=== PATIENT | female | born 1985 | race Caucasian/White ===

== ENCOUNTER 2017-08-14 04:35 | Inpatient (IN) | payer BC ==
[2017-08-14 04:57] VITALS: BMI 30.4
[2017-08-14] MEDS ORDERED: Lactated Ringer's 1,000 ML IV ONE (05:14)
[2017-08-14 06:24] LABS: SQUAMOUS EPITHIAL 1 /hpf (0-5); URINE BACTERIA RARE (<OCC); URINE BILIRUBIN NEGATIVE (NEGATIVE); URINE BLOOD 1+ (NEGATIVE); URINE CLARITY Clear (Clear); URINE COLOR Yellow (YELLOW); URINE GLUCOSE (UA) NORMAL (Normal); URINE LEUKOCYTE ESTERASE NEG Leu/uL (Negative); URINE NITRATE NEGATIVE (NEGATIVE); URINE PROTEIN NEGATIVE (NEGATIVE); URINE UROBILINOGEN NORMAL mg/dL (0.2-1.0)
[2017-08-14 06:32] LABS: BASO % 0.4 % (0.0-2.0); EOS # 0.1 K/uL (0.0-0.7); EOS % 1.1 % (0.0-4.0); HEMOGLOBIN 13.2 g/dL (11.0-16.0); LYMPH # 1.7 K/uL (1.0-4.3); MEAN CELL VOLUME 89.8 fL (81.0-99.0); MEAN CORPUSCULAR HEMOGLOBIN 30.5 pg (27.0-31.0); MEAN CORPUSCULAR HGB CONC 33.9 g/dL (33.0-37.0); MONO # 0.6 K/uL (0.0-0.8); MONO % 7.1 % (0.0-10.0); NEUT # 5.5 K/uL (1.8-7.0); NEUT % 70.4 % (50.0-75.0); RBC 4.32 Mil/uL (3.80-5.20); RED CELL DISTRIBUTION WIDTH 13.3 % (11.5-14.5); WHITE BLOOD COUNT 7.9 K/uL (4.8-10.8)
[2017-08-14 06:34] LABS: ALB/GLOB RATIO 1.1 (1.0-2.1); ALBUMIN 3.4 g/dL (3.5-5.0); ALT/SGPT 23 U/L (9-52); AST/SGOT 20 U/L (14-36); BLOOD UREA NITROGEN 10 mg/dL (7-17); CALCIUM 9.2 mg/dl (8.6-10.4); GFR AFRICAN-AMERICAN > 60; GFR NON-AFRICAN AMERICAN > 60
[2017-08-14] MEDS ORDERED: Sodium Citrate/Citric Acid 15 ml Sol PO ONE (07:21)
[2017-08-14] MEDS ORDERED: Morphine 1 mg/ml preservative-free Inj(Duramorph) ONE (07:22)
[2017-08-14] MEDS ORDERED: Sodium Citrate/Citric Acid 15 ml Sol ONE (07:22)
--- NOTE | 2017-08-14 07:28 | OBADHP ---
Datetime: 08/14/2017 05:16 IP Adm Impression Other: early labor Admit Comment, IP Provider: 32 y.o. , LMP 11/24/16, JO ANN 09/08/17, EGA 36w 3d c/o onset of Ctx 020 0 hours, pain scale 10/10, every 4 minutes lasting 30- 45 seconds. Pain starts in back and readiates anteriorly to lower abdomen. care: Dr. Jones; noted for treatment of throat in second trim estre; anemia. P Ob: Primip P HEAD OF ENGLISH: 14 x 33-35 x 4-5 PMH: 2013, hyperthyroid, then spontaneous resolution. Never on meds. During , found to be euthyroid PSH: denies NKDA Meds: PNV, iron, Vit D - takes each once a day Soc Hx: denies tobacco, illicit drug or EtOH use. x 3 years. Fam Hx: Mother alive 56 y.o. Father alive 64 y.o. - both, no med issues. MGM - uterine and ovaria n cancers; one mat aunt P.E.: as aobve. WD in pain. Awake, alert, oriented to time, person and place. Accompanied by husb and Assessment: 32 y.o. P0, 36w 3d, pain of unclear aetiology. FHR tracing - as above; variable decel erations maximum constance to 80 bpm with good recovery; moderate variability. Clinically stable. Plan: 1) IVFs 2) Flexeril 10 mg p.o. x 1 3) U/A 4) Observe - as per, and discussed with, Dr. Jones Addendum 0530 hours: hold flexeril at this time. Continue IVFs, lateral position and oxygen 6.45 am [facility] [place] [facility] sve 1-/-2 A/P patient at 36.3wga with nonreassuirng tracing.early labor.remote from delivery. -discussed with patient about the clinical findings -recommend emergency delivery Pelvic Type - PN: Adequate Extremities - PN: Normal Abdomen - PN: Normal Back - PN: Normal Breast - PN: Not Done Lungs - PN: Normal Heart - PN: Normal Thyroid - PN: Not Done Neurologic - PN: Normal HEENT - PN: Normal General - PN: Normal FHR - Baseline A Provider: 150 Contraction Comments Provider: none detected Comments, ACOG Physical Exam: Abdomen: Gravid. Soft to palpation. Non tender in all quadrants Gestation - Est Wks by US: 36w 3d IP Hx Assessment: The History has been Reviewed and is Current IP Chief Complaint: Uterine contractions NICHD Accel Fetus A IP Provider: [id number] FHR Category Provider Fetus A: Category II NICHD Decel Fetus A IP Provider: Variable Dilatation, Provider: 1 Effacement, Provider: 50 Station, Provider: -3 Genitourinary Exam: Normal DTRs - PN: Not Done EGA AdmitDate IP: 36.3 IP Adm Impression: , intrauterine IP Admit Plan: Admit to unit; Observation/Evaluation
[2017-08-14] MEDS ORDERED: Oxytocin 20 units in LR 2,000 ML IV ONE (07:29)
[2017-08-14] MEDS: cefOXitin 2 GM in Sodium Chloride 0.9% 100 ML IVPB SCH ×3 (07:43→23:00)
[2017-08-14] MEDS ORDERED: Oxycodone/Acetaminophen 5/325 mg Tab PO PRN (12:26)
[2017-08-14] MEDS ORDERED: Lactated Ringer's 1,000 ML IV SCH (12:30)
[2017-08-14 12:51] LABS: BASO % 0.3 % (0.0-2.0); EOS % 0.1 % (0.0-4.0); HEMOGLOBIN 12.5 g/dL (11.0-16.0); LYMPH % 7.6 % (20.0-40.0); MEAN CORPUSCULAR HEMOGLOBIN 30.9 pg (27.0-31.0); MEAN CORPUSCULAR HGB CONC 34.3 g/dL (33.0-37.0); MEAN PLATELET VOLUME 9.6 fL (7.2-11.7); MONO # 0.8 K/uL (0.0-0.8); MONO % 6.1 % (0.0-10.0); NEUT # 10.9 K/uL (1.8-7.0); NEUT % 85.9 % (50.0-75.0); PLATELET COUNT 210 K/uL (130-400); RBC 4.06 Mil/uL (3.80-5.20); RED CELL DISTRIBUTION WIDTH 13.2 % (11.5-14.5); WHITE BLOOD COUNT 12.6 K/uL (4.8-10.8)
[2017-08-14 13:31] LABS: BANDS 3 % (0-2); LYMPHOCYTE 6 % (20-40); MONOCYTE 7 % (0-10); NEUTROPHIL 84 % (50-75); PLATELET ESTIMATE NORMAL (NORMAL); TOTAL CELLS COUNTED 100
[2017-08-14 13:32] LABS: GIANT PLATELETS PRESENT
[2017-08-14] MEDS: Simethicone 80 mg Chewtab PO SCH ×3 (14:19→21:00)
--- NOTE | 2017-08-14 21:28 | OP ---
PROCEDURE DATE: 08/14/2017 PREOPERATIVE DIAGNOSES: 1. Nonreassuring heart tracing. 2. at 36 weeks and 3 days, labor. POSTOPERATIVE DIAGNOSES: 1. Nonreassuring heart tracing. 2. at 36 weeks and 3 days, labor. PROCEDURE PERFORMED: Primary low transverse section. SURGEON: Oleg Jones MD. RN OBSERVATION: Gabriel Vanessa MD. TYPE OF ANESTHESIA: Spinal. ANESTHESIA ADMINISTERED BY: Dr. Mohamud. COMPLICATIONS: None. ESTIMATED BLOOD LOSS: 700 mL. FINDINGS: A viable female in vertex presentation. Nuchal x1 around the neck, loose as well as a body cord present. Apgars of 9 at one minute and 9 at five minutes of life. Normal-appearing uterus, tubes and ovaries. PROCEDURE IN DETAIL: After informed consent was obtained, the patient was taken to the operating room and spinal anesthesia was administered by the Anesthesia team. She was therefore placed in dorsal supine position with a leftward tilt and she was then prepped and draped in the usual sterile manner. The Pfannenstiel skin incision was then made with a scalpel and carried down to the underlying layer of the fascia with the help of the Bovie. The fascia was then incised in the midline and the incision extended laterally with Greenfield scissors. The superior aspect of the fascial incision was then grasped with Jarod clamps, elevated and the underlying rectus muscle dissected off. Attention was then turned to the inferior aspect of the fascial incision, which in a similar fashion was grasped with Jarod clamps, elevated and the underlying rectus muscle dissected off. The rectus muscle in the midline and the peritoneum was entered bluntly. The peritoneal incision was extended superiorly and inferiorly with good visualization of the bladder. The bladder blade was then inserted and the lower uterine segment was identified. The vesicouterine peritoneum was picked up with pickups and entered sharply with Metzenbaum scissors. This incision was extended laterally and a bladder flap was created sharply. The bladder blade was then reinserted and the lower uterine segment identified. A transverse incision was made over the lower uterine segment with the help of a scalpel. The membranes were ruptured and clear amniotic fluid was noted. The 's head was then delivered. The nuchal x1 around the neck was noted. This was reduced. Another body cord was noted while the infant's body was delivered. The cord was then clamped and cut. The was handed over to the awaiting pediatricians. The segment of cord was taken for cord blood gases. The cord blood was thereafter collected. The placenta was then manually removed and the uterus was then exteriorized and cleared off all clots and debris. The uterine incision was repaired with 0 Polysorb in a running fashion. A second layer of the same suture was used to imbricate the first layer and also to obtain hemostasis. Adequate hemostasis was noted from the uterine incision repair site. The pelvis and the cul-de-sac were irrigated and suctioned. The uterus was returned to the patient's abdomen. Bleeding was noted from the midsection of the uterine incision repair site and this was suture ligated with [id number] stitch of 0 Monocryl. Adequate hemostasis was noted from the uterine incision repair site. The bladder flap as inspected for hemostasis and adequate hemostasis was noted from it. Surgicel was placed over the bladder flap. The peritoneum was after closed with 2-0 Polysorb in a running fashion. The muscle layer was reapproximated with 2-0 Polysorb with mattress sutures. The fascia was closed with 0 Vicryl in a running fashion. The subcutaneous tissue was reapproximated with 2-0 Polysorb in a continuous manner. The skin was closed with 3-0 Monocryl in a subcuticular manner. Steri-Strips were thereafter applied. The patient was thereafter cleaned and taken to the recovery room in stable condition. The sponge, lap, needle and instrument counts were correct x3 as reported to me at the end of the procedure. The Stuart catheter was left in situ for postop bladder drainage. Oleg Jones MD
[2017-08-15 07:39] LABS: BASO % 0.3 % (0.0-2.0); EOS # 0.1 K/uL (0.0-0.7); EOS % 0.7 % (0.0-4.0); HEMOGLOBIN 11.7 g/dL (11.0-16.0); LYMPH # 1.3 K/uL (1.0-4.3); LYMPH % 14.2 % (20.0-40.0); MEAN CELL VOLUME 89.7 fL (81.0-99.0); MEAN CORPUSCULAR HEMOGLOBIN 31.3 pg (27.0-31.0); MEAN CORPUSCULAR HGB CONC 34.9 g/dL (33.0-37.0); MEAN PLATELET VOLUME 9.6 fL (7.2-11.7); MONO # 0.5 K/uL (0.0-0.8); MONO % 5.1 % (0.0-10.0); NEUT # 7.5 K/uL (1.8-7.0); NEUT % 79.7 % (50.0-75.0); RBC 3.74 Mil/uL (3.80-5.20); RED CELL DISTRIBUTION WIDTH 13.2 % (11.5-14.5); WHITE BLOOD COUNT 9.4 K/uL (4.8-10.8)
[2017-08-15] MEDS: Simethicone 80 mg Chewtab PO SCH ×3 (09:26→17:55)
[2017-08-15] MEDS: Oxycodone/Acetaminophen 5/325 mg Tab PO PRN ×2 (09:30→16:03)
[2017-08-16] MEDS: Simethicone 80 mg Chewtab PO SCH ×5 (06:02→21:36)
[2017-08-17] MEDS: Simethicone 80 mg Chewtab PO SCH ×4 (10:05→21:33)
--- NOTE | 2017-08-17 18:42 | OBPPN ---
Datetime: 08/17/2017 18:31 PP Pain Prov: Within normal limits PP Nausea Prov: Denies PP Flatus Prov: Yes PP Breasts Prov: Normal PP Heart Prov: Normal PP Lungs Prov: Normal PP Abdomen/Uterus Prov: Normal PP Vulva/Perineum Prov: Normal PP CVA Tenderness Prov: Normal PP Extremities Prov: Normal PP C/S Incision Prov: Normal PP Progress Prov: Normal PP Impression Prov: Normal progression PP Plan Prov: Continue present management PP Progress Note Prov: S-patient states that her pain is well controlled.Denies nausea, vomiting, he adache, chest pain, shortness of breath, numbness or tingling in hands and feet O-VSS Afebrile Abdoemn soft and nontender Incision clean, dry and intact Ext no calf tenderness A/P Patient s/p csection pod 3 -anticipate dischareg tomorrow Vital Signs Provider PP: Reviewed; Within Normal Limits Datetime: 08/15/2017 06:52 PP BM Prov: No PP Lochia Prov: Normal
[2017-08-18 00:23] VITALS: RESP 20
[2017-08-18 08:19] VITALS: BP 118/83; PULSE 83; TEMP 97.2; O2SAT 98
[2017-08-18] MEDS ORDERED: Influenza Vaccine 60 mcg/0.5 mL SYR (4YR UP) IM ONE (09:30)
[2017-08-18] MEDS: Simethicone 80 mg Chewtab PO SCH ×2 (09:31→17:22)
--- NOTE | 2017-08-18 13:03 | OBDCSUM ---
Datetime: 08/18/2017 12:31 Discharged to, Provider: Home Follow up at, Provider: Dr Jones Disch Instr Activity: Normal activity; May Shower Disch Instr Diet: Regular Discharge Diet restrict Prov: none Discharge Instructions, Provider: Routine instructions given Discharge Diagnosis, Provider: Delivery Discharge Time: 08/18/2017 13:02 Follow up in weeks, Provider: 1 week Disch Referrals: None Disch Activity Restrictions: No sexual activity; Nothing in vagina - [place], tampons, douche Discharge Comment, Provider: call your doctor or go to er if you have fever, severe pain, heavy blee ding or any other problems Discharge Diagnosis Prov Other: s/p csection
--- NOTE | 2017-08-18 13:03 | OBPPN ---
Datetime: 08/18/2017 13:01 PP Pain Prov: Within normal limits PP Nausea Prov: Denies PP Flatus Prov: Yes PP BM Prov: No PP Heart Prov: Normal PP Lungs Prov: Normal PP Abdomen/Uterus Prov: Normal PP Lochia Prov: Normal PP Vulva/Perineum Prov: Normal PP CVA Tenderness Prov: Normal PP Extremities Prov: Normal PP C/S Incision Prov: Normal PP Progress Prov: Normal PP Impression Prov: Normal progression PP Plan Prov: Discharge PP Progress Note Prov: S--patient denies any complaints.toelrating diet.ambulating and voiding witho ut difficulty.breast feeding. O-VSS Afebrile Abdomen gravid and nontender Extremities no calf tenderness incision clean, dry and intact A/P Ptaient s/p cscetion pod 4 doing well -discharge today -follow up in clinic in 1 week Vital Signs Provider PP: Reviewed; Within Normal Limits
--- NOTE | 2017-08-19 22:28 | OBHP ---
Datetime: 08/14/2017 05:16 IP Adm Impression: , intrauterine IP Adm Impression Other: early labor IP Admit Plan: Admit to unit; Observation/Evaluation Admit Comment, IP Provider: 32 y.o. , LMP 11/24/16, JO ANN 09/08/17, EGA 36w 3d c/o onset of Ctx 020 0 hours, pain scale 10/10, every 4 minutes lasting 30- 45 seconds. Pain starts in back and readiates anteriorly to lower abdomen. care: Dr. Jones; noted for treatment of sore throat in second trimestre; anemia. 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 Never on meds. During , found to be euthyroid PSH: denies NKDA Meds: PNV, iron, Vit D - takes each once a day Soc Hx: denies tobacco, illicit drug or EtOH use. x 3 years. Fam Hx: Mother alive 56 y.o. Father alive 64 y.o. - both, no med issues. MGM - uterine and ovaria n cancers; one mat aunt P.E.: as aobve. WD in pain. Awake, alert, oriented to time, person and place. Accompanied by husb and Assessment: 32 y.o. P0, 36w 3d, pain of unclear aetiology. FHR tracing - as above; variable decel erations maximum constance to 80 bpm with good recovery; moderate variability. Clinically stable. Plan: 1) IVFs 2) Flexeril 10 mg p.o. x 1 3) U/A 4) Observe - as per, and discussed with, Dr. Jones Addendum 0530 hours: hold flexeril at this time. Continue IVFs, lateral position and oxygen 6.45 am [facility] [place] [facility]ve 1-2/50/-2 A/P patient at 36.3wga with nonreassuirng tracing.early labor.remote from delivery. -discussed with patient about the clinical findings -recommend emergency delivery Pelvic Type - PN: Adequate Extremities - PN: Normal Abdomen - PN: Normal Back - PN: Normal Breast - PN: Not Done Lungs - PN: Normal Heart - PN: Normal Thyroid - PN: Not Done Neurologic - PN: Normal HEENT - PN: Normal General - PN: Normal FHR - Baseline A Provider: 150 Contraction Comments Provider: none detected Comments, ACOG Physical Exam: Abdomen: Gravid. Soft to palpation. Non tender in all quadrants Gestation - Est Wks by US: 36w 3d IP Hx Assessment: The History has been Reviewed and is Current EGA AdmitDate IP: 36.3 IP Chief Complaint: Uterine contractions NICHD Accel Fetus A IP Provider: 15X15 FHR Category Provider Fetus A: Category II NICHD Decel Fetus A IP Provider: Variable Dilatation, Provider: 1 Effacement, Provider: 50 Station, Provider: -3 Genitourinary Exam: Normal DTRs - PN: Not Done
== END 2017-08-18 21:25 | disposition home or self-care (01) | DRG 765 ==
LOC: C.EROB 04:35 → C.4D 06:08 → C.4M 11:00
PROVIDERS: ADMIT Student in an Organized Health Care Education/Training Program; ATTEND Student in an Organized Health Care Education/Training Program
PROC: 10D00Z1 Extraction of Products of Conception, Low, Open Approach (ICD-10-PCS; principal; 2017-08-14)
DX: O76 Abnormality in fetal heart rate and rhythm complicating labor and delivery (principal); O60.14X0 Preterm labor third trimester with preterm delivery third trimester, not applicable or unspecified; O69.81X0 Labor and delivery complicated by cord around neck, without compression, not applicable or unspecified; Z37.0 Single live birth; Z3A.36 36 weeks gestation of pregnancy